=== PATIENT | female | born 2000 | race Two or more races ===

== ENCOUNTER 2020-02-19 12:00 | Emergency (ER) | payer OTHER ==
[2020-02-19 12:18] VITALS: BP 119/57; PULSE 82; TEMP 98.2; BMI 19.3
--- NOTE | 2020-02-19 14:25 | PDOC ---
History of Present Illness - General Chief Complaint: Vaginal Bleeding Stated Complaint: VAGINAL BLEEDING Time Seen by Provider: 02/19/20 13:18 History Source: Patient Exam Limitations: No Limitations - History of Present Illness Initial Comments: 02/19/20 14:22 Patient is a 19-year-old female with a history of asthma who presents to the ED with complaint of vaginal bleeding that has been worsening over the last 3 to 4 days. She states she was seen at [facility] for vaginal bleeding and and was told she had a subchorionic hemorrhage. She states that the bleeding got worse today while going to the store. She states she has been passing clots. She is unsure if she passed any tissue. The patient is and her LMP was January 05, 2020. By dates the patient is 6 weeks 3 days gestation. She denies any abdominal pain. Past History - Medical History Allergies/Adverse Reactions: Allergies Allergy/AdvReac Type Severity Reaction Status Date / Time PEANUTS Allergy Severe Hives Uncoded 02/19/20 12:15 Home Medications: Ambulatory Orders Cephalexin [Keflex] 500 mg PO TID #14 capsule 02/19/20 Asthma: Yes COPD: No - Reproductive History Is Patient Now?: Yes - Immunization History Immunization Up to Date: Yes - Psycho-Social/Smoking History Smoking Status: No Smoking History: Former smoker Have you smoked in the past 12 months: Yes Number of Cigarettes Smoked Daily: 0 Information on smoking cessation initiated: No - Substance Abuse Hx (Audit-C & DAST Scrn) How often the patient has a drink containing alcohol: Never Score: In Men: 4 or > Positive; In Women: 3 or > Positive: 0 Screen Result (Pos requires Nsg. Audit-10AR): Negative In the last yr the pt used illegal drug/Rx for NonMed reason: No Score: Yes response is considered Positive: 0 Screen Result (Positive result requires Nsg. DAST-10): Negative Review of Systems - Review of Systems Comments:: 02/19/20 14:22 - Review of Systems Able to Perform ROS?: Yes Constitutional: No: Fever, Chills, Loss of Appetite, Night Sweats, Weakness HEENTM: No: Eye Pain, Vision changes, Ear Pain, Throat Pain, Throat Swelling, Mouth Pain, Difficulty Swallowing Respiratory: No: Cough, Shortness of Breath, Wheezing, Sputum Production Cardiac (ROS): No: Chest Pain, Chest Tightness, Palpitations, Irregular Heart Beat, Edema ABD/GI: No: Nausea, Vomiting, Abdominal Pain, Diarrhea : No Dysuria, No Hematuria, No Frequency, No Urgency; positive: Vaginal bleeding in Musculoskeletal: No: Muscle Pain, Back Pain, Joint Pain, Muscle Weakness, Neck Pain Integumentary: No: Lesions, Rash Neurological: No: Headache, Numbness, Tingling, Weakness, Speech Difficulties *Physical Exam - Vital Signs Last Vital Signs Temp Pulse Resp BP Pulse Ox 98.2 F 82 20 119/57 L 100 02/19/20 12:16 02/19/20 12:16 02/19/20 12:16 02/19/20 12:16 02/19/20 12:16 - Physical Exam 02/19/20 14:23 - Physical Exam General Appearance: Nourished, Appropriately Dressed, No Distress HEENT: EOMI, Normal Voice, Hearing Grossly Normal Neck: Supple, No Lymphadenopathy (R), No Lymphadenopathy (L), No Rigidity, No Decreased range of motion Respiratory/Chest: Lungs Clear, Normal Breath Sounds. No Respiratory Distress, No Accessory Muscle Use Cardiovascular: Regular Rhythm, Regular Rate, S1, S2 Gastrointestinal/Abdominal: Normal Bowel Sounds, Soft. 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 No CMT. Os closed. Uterus palpable but without tenderness. Adnexa nontender and n onpalpable. Musculoskeletal: Normal Inspection. No Decreased Range of Motion Extremity: Normal Capillary Refill, Normal Inspection Integumentary: Normal Color, Dry. No Rash Neurologic: outside sales consultant II-XII NML intact, Fully Oriented, Alert, Normal Mood/Affect, Normal Response ED Treatment Course - LABORATORY CBC & Chemistry Diagram: 02/19/20 14:04 02/19/20 14:04 - ADDITIONAL ORDERS Additional order review: 02/19/20 14:24 Results reviewed from [facility] on 02/15/2020: Transvaginal ultrasound shows an intrauterine gestational sac containing a yolk sac. No pole. Subchorionic hemorrhage. Complex right ovarian cyst. Blood type O+ Quantitative beta-hCG 11,388 - RADIOLOGY Radiology Studies Ordered: Category Date Time Status TRANSVAGINAL US PREG [US] Stat Ultrasound 02/19/20 13:36 Ordered Medical Decision Making - Medical Decision Making 02/19/20 14:23 Assessment: Patient is a 19-year-old female G1, P0, 6 weeks 3 days gestation via dates who presents with vaginal bleeding and . Plan: -Saline lock and labs ordered -Transvaginal ultrasound ordered -Will reassess 02/19/20 16:38 The patient has been made aware that her urine shows a UTI we will treat her with Keflex. First dose given her in the ED. Her ultrasound shows a single live intrauterine gestation at 5 weeks 6 days. She also has a small to moderate sized subchorionic hemorrhage. She has been made aware that she must remain on pelvic rest until she is cleared by her THREAT ANALYST. She has an appointment with Dr. James on 03/06/2020 but she has been made aware to call her tomorrow to see if she can be seen sooner. The patient has been given strict return precautions. She understands and agrees with this treatment plan and the patient is stable for discharge. Discharge - Discharge Information Problems reviewed: Yes Clinical Impression/Diagnosis: Vaginal bleeding during Subchorionic hemorrhage in first trimester Qualifiers: Fetus number: single or unspecified fetus Qualified Code(s): O41.8X10 - Other specified disorders of amniotic fluid and membranes, first trimester, not applicable or unspecified; O46.8X1 - Other antepartum hemorrhage, first trimester Condition: Stable Disposition: HOME - Additional Discharge Information Prescriptions: Cephalexin [Keflex] 500 mg PO TID #14 capsule - Follow up/Referral Referrals: Mona Villareal MD [Staff Physician] - Call tomorrow - Patient Discharge Instructions Patient Printed Discharge Instructions: DI for Vaginal Bleeding During Additional Instructions: You must participate in pelvic rest until you are cleared by your THREAT ANALYST. This means no heavy lifting, strenuous activity, sexual intercourse, anything in the vagina until you are cleared. Get plenty of rest and drink plenty of fluids. Return to the emergency department for worsening bleeding, increased pain or any other worsening symptoms. Call your THREAT ANALYST tomorrow to see if you can be seen sooner than March 06 as your previously scheduled. - Post Discharge Activity
[2020-02-19 15:00] LABS: BASO % 0.6 % (0-2.0); HEMATOCRIT 39.2 % (32.4-45.2); HEMOGLOBIN 13.1 GM/dL (10.7-15.3); INR 1.04 (0.83-1.09); MCH 29.7 pg (25.7-33.7); MCHC 33.5 g/dl (32.0-36.0); MEAN CELL VOLUME 88.5 fl (80-96); MEAN PLT VOLUME 8.9 fl (7.5-11.1); MONO % 8.5 % (3.8-10.2); NEUT % 64.9 % (42.8-82.8); PLATELET COUNT 240 K/MM3 (134-434); PROTHROMBIN TIME (PATIENT) 12.3 SEC (9.7-13.0); RBC 4.43 M/mm3 (3.60-5.2); RDW 14.4 % (11.6-15.6); WHITE BLOOD COUNT 7.8 K/mm3 (4.0-10.0)
[2020-02-19 15:03] LABS: ACTIVATED PTT 30.9 SECONDS (25.2-36.5)
[2020-02-19 15:30] LABS: ALBUMIN 4.6 g/dl (3.4-5.0); BILIRUBIN,TOTAL 0.8 mg/dL (0.2-1); BLOOD UREA NITROGEN 7.6 mg/dL (7-18); CALCIUM 9.4 mg/dL (8.5-10.1); CREATININE 0.8 mg/dL (0.55-1.3); POTASSIUM 3.4 mmol/L (3.5-5.1); TOT PROT 8.5 g/dl (6.4-8.2)
[2020-02-19 15:38] LABS: EPI CELLS 19 /uL (0-25.1); HYALINE CASTS 1 /uL (0-3.1); PH,URINE 7.5 (5.0-8.0); URINE APPEARANCE CLEAR; URINE BACTERIA 5773 /uL (0-1359); URINE BILIRUBIN NEGATIVE (NEGATIVE); URINE COLOR YELLOW; URINE GLUCOSE (UA) NEGATIVE (NEGATIVE); URINE KETONE NEGATIVE (NEGATIVE); URINE LEUK ESTERASE TRACE (NEGATIVE); URINE NITRITE POSITIVE (NEGATIVE); URINE PROTEIN NEGATIVE (NEGATIVE); URINE WBC 70 /uL (0-25.8)
[2020-02-19 15:43] LABS: HCG,QUALITATIVE URINE Positive
[2020-02-19] MEDS ORDERED: CEPHALEXIN MONOHYDRATE 500 MG CAPSULE (UD) PO ONE (16:19)
[2020-02-19] MEDS ORDERED: CEPHALEXIN MONOHYDRATE 500 MG CAPSULE (UD) ONE (16:42)
[2020-02-19 16:48] LABS: URINE RBC 12.3 /uL (0-23.9)
== END 2020-02-19 16:46 | disposition home or self-care (01) ==
LOC: JER 12:00
DX: O41.8X10 Other specified disorders of amniotic fluid and membranes, first trimester, not applicable or unspecified (principal); O46.8X1 Other antepartum hemorrhage, first trimester
CPT/HCPCS: 36415; 76817-TC; 80053; 81003; 84702; 84703; 85025; 85610; 85730; 86850; 86900; 86901; 87086; 99284-25